=== PATIENT | female | born 1985 | race Caucasian/White ===

== ENCOUNTER 2023-04-04 18:35 | Emergency (ER) | payer BC, SELFPAY ==
[2023-04-04 18:37] VITALS: BP 118/90; PULSE 87; RESP 16; TEMP 36.6; O2SAT 100
--- NOTE | 2023-04-04 18:39 | ED.EAR ---
HPI - Ear Problem General Chief complaint: Ear Stated complaint: Head Pressure Time Seen by Provider: 04/04/23 18:38 Source: patient Mode of arrival: ambulatory Limitations: no limitations History of Present Illness HPI Narrative: Patient is a 38-year-old female with right ear pain. She has had pain for the past few days and it has gotten worse. Urgent care and they gave her prednisone to start in the morning. They said she did not have an infection so no antibiotics were given. She does not have major visual changes or tenderness at the palpations site of the right temporal area. The pain radiates to the right face and right neck. MD Complaint: ear pain Location: right ear Duration: constant Severity: moderate Relieving factors: nothing Exacerbating factors: nothing Discharge from ear: Reports no Associated symptoms ear: headache and neck pain Treatment prior to arrival: none Related Data Allergies Allergy/AdvReac Type Severity Reaction Status Date / Time Penicillins Allergy Swelling Verified 04/04/23 18:44 Sulfa (Sulfonamide Allergy Sweating Verified 04/04/23 18:44 Antibiotics) Review of Systems Review of Systems: All systems reviewed & are unremarkable except as noted in HPI and below Constitutional: Constitutional: Reports no additional constitutional complaints Eyes: Eyes: Reports no additional eye complaints ENT: Reports system reviewed and no additional complaints, except as documented Cardiovascular: Cardiovascular: Reports no additional cardiovascular complaints Respiratory: Respiratory: Reports no additional respiratory complaints Gastrointestinal: Gastrointestinal: Reports no additional gastrointestinal complaints Genitourinary: Genitourinary: Reports no additional female genitourinary complaints Musculoskeletal: Musculoskeletal: Reports no additional musculoskeletal complaints Integumentary/Breasts: Skin/Breast: Reports system reviewed and no additional complaints, except as docu Neurologic: Reports system reviewed and no additional complaints, except as documented Psychiatric: Psychiatric: Reports no additional psychiatric complaints Endocrine: Endocrine: Reports no additional endocrine complaints Hematologic/Lymphatic: Hematologic/Lymphatic: Reports no additional hematologic/lymphatic complaints Allergic/Immunologic: Allergic/Immunologic: Reports no additional allergic/immunologic complaints Exam Const: General: healthy appearing Nutritional Appearance: well nourished Orientation/consciousness: patient oriented x3 HENMT: Head: normal to inspection Ears: external ears normal Face/Nose/Sinus: Normal external nose present Face and sinus: no sinus tenderness Other: Patient points to a area of trigeminal distribution of pain without any acute findings Eyes: Conjunctivae: conjunctivae normal Pupils: Equal, round and reactive pupils present EOM: EOMs intact bilaterally Neck: Neck: normal visual inspection Chest: Chest palpation & inspection: normal inspection of the chest Resp: Effort & Inspection: normal respiratory effort and not labored Auscultation: clear to auscultation bilaterally and no crackles Cardio: Rate: regular rate Rhythm: regular rhythm Heart sounds: no murmurs GI: Inspection: non-distended GI Palp: Yes Soft to palpation and No Tenderness to palpation present (GI) Auscultation: normal bowel sounds : General: Yes bladder normal to palpation Back/Spine/Pelvis: Back: no CVA tenderness Skin: General skin exam: normal color Rashes: no rashes Wounds: no wounds Neuro: General: patient oriented x3 Cranial nerves: Yes Nystagmus not present Speech: normal speech Extrem: General: normal to inspection Psych: Mental Status: mental status grossly normal Affect: normal affect Attitude: cooperative Course Vital Signs Vital signs: Vital Signs Temperature 36.6 C 04/04/23 18:37 Pulse Rate 87 04/04/23 18:37 Respiratory Rate 16
[2023-04-04 18:41] VITALS: BP 118/90; PULSE 87; RESP 16; TEMP 36.9; O2SAT 100
[2023-04-04] MEDS: carBAMazepine 200 MG TABLET PO (19:10)
[2023-04-04] MEDS: KETOROLAC (*BKC) 60 MG/2 ML VIAL IM (19:10)
[2023-04-04 19:35] VITALS: BP 110/86; PULSE 80; RESP 20; TEMP 36.7; O2SAT 99
== END 2023-04-04 19:35 | disposition home or self-care (01) ==
LOC: CHSED 19:23
PROVIDERS: Emergency Provider Emergency Medicine; PCP Family Medicine
DX: G50.0 Trigeminal neuralgia (principal)
CPT/HCPCS: 96372; 99283; A9270; J1885